=== PATIENT | female | born 1940 | race Caucasian/White ===

== ENCOUNTER 2016-10-03 14:58 | Outpatient (CLI) | payer MEDICARE, OTHER | END 2016-10-03 15:00 | LOC: NEPHRO 14:58 | PROVIDERS: ATTEND Internal Medicine Nephrology | DX: E11.22 Type 2 diabetes mellitus with diabetic chronic kidney disease (principal); N18.3 Chronic kidney disease, stage 3 (moderate) | CPT/HCPCS: G0463 ==

== ENCOUNTER 2016-10-12 10:10 | Emergency (ER) | payer MEDICARE, OTHER ==
[2016-10-12 12:16] LABS: APPEARANCE,URINE Slightly Cloudy (CLEAR); COLOR,URINE Yellow (YELLOW); OCCULT BLOOD,URINE 1+ (NEGATIVE); PH URINE 5.5 (5.0 - 8.0)
[2016-10-12 12:17] LABS: BASOPHILS % 0.2 (0.0-1.5); EOSINOPHILS % 0.4 % (0.0-6.8); MEAN CORPUSCULAR HEMOGLOBIN 29.9 pg (28.0-34.0); MEAN CORPUSCULAR VOLUME 90.3 fl (80.0-100.0); MONOCYTES % 3.2 % (0.0-11.0); NEUTROPHILS # 6.2 # k/uL (1.4-7.7)
[2016-10-12 12:30] LABS: AMORPHOUS SEDIMENT,UR FEW (NEGATIVE)
[2016-10-12] MEDS ORDERED: SULFAMETHOXAZOLE/TRIMETHOPRIM 1 EACH TABLET PO ONE (13:45)
[2016-10-12] MEDS ORDERED: MULTIVITAMIN 1 EACH TABLET PO SCH (14:00)
--- NOTE | 2016-10-12 14:14 | ED Physician Documentation ---
Fall - HISTORIAN Historian: patient - HPI Stated Complaint: Fall with Right Sided Rib Pain Chief Complaint: Fall Additional Information: hit right ribs Onset: just prior to arrival Where: home Context: tripped r: mild Associated Symptoms:: no loss of consciousness Location of Pain/Injury: head, chest Injury to Right Extremity: none Injury to Left Extremity: none Further Comments: no - ROS CONST: no problems NEURO: denies: dizziness, anxiety, depression MS/SKIN/LYMPH: denies: weakness, numbness, neck pain, back pain, ankle swelling , leg swelling, rash EYES/ENT: none CVS/RESP: none GI/: denies: problems urinating, nausea, vomiting - PAST HX Past History: diabetes Type 2, other (htn) Immunizations: referred to PCP Allergies/Adverse Reactions: Allergies Allergy/AdvReac Type Severity Reaction Status Date / Time No Known Allergies Allergy Unverified 10/12/16 10:21 Home Medications: Ambulatory Orders Medication Instructions Recorded Doxazosin Mesylate 4 mg PO DAILY 10/12/16 Hydralazine HCl [APRESOLINE] 100 mg PO BID 10/12/16 Insulin Glargine,Hum.rec.anlog 10/12/16 [Lantus] Levothyroxine Sodium [Synthroid] 75 mcg PO DAILY 10/12/16 Metoprolol Succinate [Toprol XL] 25 mg PO DAILY 10/12/16 Omeprazole [Omeprazole] 20 mg PO DAILY 10/12/16 Rosuvastatin Calcium [Crestor] 40 mg PO DAILY 10/12/16 - SOCIAL HX Smoking History: non-smoker Alcohol Use: none Drug Use: none - FAMILY HX Family History: no significant history - VITAL SIGNS Vital Signs: Vital Signs Temp Pulse Resp BP Pulse Ox 97 F L 64 18 166/44 98 10/12/16 10:10 10/12/16 10:10 10/12/16 10:10 10/12/16 10:10 10/12/16 10:10 - REVIEWED ASSESSMENTS Nursing Assessment Reviewed: Yes Vitals Reviewed: Yes Progress - Results/Orders Results/Orders: trop, bnp, ua, cmp, cbc, ekg, ct brain, ct c-soine, right ribs x-ray and cxr ordered ordered - Progress Progress: pt. stable entire time in er, given bactrim ds x 1 and mvi p.o. in er Critical Care Note - Critical Care Note Total Time (mins): 0 ED Results Lab/Radiology - Lab Results Lab Results: Lab Results 10/12/16 10/12/16 10/12/16 12:10 12:10 12:10 WBC RBC Hgb Hct MCV MCH MCHC RDW Plt Count Neut % (Auto) Lymph % (Auto) [place] % (Auto) Eos % (Auto) Baso % (Auto) Neut # Lymph # [place] # Eos # Baso # Reactive Lymphs % Reactive Lymphs # Sodium 140 mmol/L mmol/L (136-145) Potassium 3.9 mmol/L mmol/L (3.5-5.0) Chloride 103 mmol/L mmol/L (98-110) Carbon Dioxide 35 mmol/L H mmol/L (20-32) BUN 25 mg/dL mg/dL (10-26) Creatinine 1.7 mg/dL H mg/dL (0.4-1.5) Estimated Creat Clear 45 Est GFR ( Amer) 38 L (60 - ) Est GFR (Non-Af Amer) 31 L (60 - ) Glucose 147 mg/dL H mg/dL (70-99) Calcium 10.3 mg/dL mg/dL (8.5-10.5) Total Bilirubin 1.4 mg/dL H mg/dL (0.2-1.2) AST 20 U/L U/L (0-41) ALT 12 U/L U/L (0-45) Alkaline Phosphatase 46 U/L U/L (46-116) Troponin I < 0.03 ng/mL L ng/mL (0.03-0.06) NT-Pro-B Natriuret Pep 1885.0 pg/mL H pg/mL (15.0-450.0) Total Protein 7.7 g/dL g/dL (6.0-8.5) Albumin 4.1 g/dL g/dL (3.0-5.5) Urine Color Yellow (YELLOW) Urine Appearance Slightly cloudy (CLEAR) Urine pH 5.5 (5.0 - 8.0) Ur Specific [place] 1.025 (1.010-1.030) Urine Protein 2+ mg/dL H mg/dL (NEGATIVE) Urine Ketones Trace mg/dL mg/dL (NEGATIVE) Urine Occult Blood 1+ H (NEGATIVE) Urine Nitrite Negative (NEGATIVE) Urine Bilirubin Negative (NEGATIVE) Urine Urobilinogen 1.0 Eu Eu (0.2-1.0) Ur Leukocyte Esterase Negative (NEGATIVE) Urine RBC 2-5 H (0-2 HPF) Urine WBC 2-5 (0-5 HPF) Ur Squamous Epith Cells Few (NEG-FEW) Amorphous Sediment Few H (NEGATIVE) Urine Glucose Negative mg/dL mg/dL (NEGATIVE) 10/12/16 12:10 WBC 6.90 K/ul K/ul (4.00-12.00) RBC 3.90 M/ul M/ul (3.90-5.20) Hgb 11.6 g/dL L g/dL (12.0-16.0) Hct 35.2 % % (34.5-46.5) MCV 90.3 fl fl (80.0-100.0) MCH 29.9 pg pg (28.0-34.0) MCHC 33.1 g/dL g/dL (30.0-36.0) RDW 15.1 % H % (11.3-14.3) Plt Count 140 K/mm3 K/mm3 (130-400) Neut % (Auto) 89.7 % H % (39.0-79.0) Lymph % (Auto) 6.1 % L % (16.0-50.0) [place] % (Auto) 3.2 % % (0.0-11.0) Eos % (Auto) 0.4 % % (0.0-6.8) Baso % (Auto) 0.2 (0.0-1.5) Neut # 6.2 # k/uL # k/uL (1.4-7.7) Lymph # 0.4 # k/uL L # k/uL (0.6-4.0) [place] # 0.2 # k/uL # k/uL (0.0-0.9) Eos # 0.0 # k/uL # k/uL (0.0-0.6) Baso # 0.0 # k/uL # k/uL (0.0-0.5) Reactive Lymphs % 0.5 % % (0.0-5.0) Reactive Lymphs # 0.0 # k/uL # k/uL (0.0-0.8) Sodium Potassium Chloride Carbon Dioxide BUN Creatinine Estimated Creat Clear Est GFR ( Amer) Est GFR (Non-Af Amer) Glucose Calcium Total Bilirubin AST ALT Alkaline Phosphatase Troponin I NT-Pro-B Natriuret Pep Total Protein Albumin Urine Color Urine Appearance Urine pH Ur Specific [place] Urine Protein Urine Ketones Urine Occult Blood Urine Nitrite Urine Bilirubin Urine Urobilinogen Ur Leukocyte Esterase Urine RBC Urine WBC Ur Squamous Epith Cells Amorphous Sediment Urine Glucose - Radiology Radiology Impressions: ct head, ct c-spine, cxr right ribs x-ray neg - Orders Orders: ED Orders Category Date Time Status CT BRAIN W/O CONTRAST Stat Exams 10/12/[address] C-SPINE W/O CONTRAST Stat Exams 10/12/16 Ordered RIBS UNILATERAL W/ PA CHEST [RAD] Routine Exams 10/12/16 Taken BNP [NT-proBNP] Routine Lab 10/12/16 12:10 Completed CBC/PLATELET/DIFF Routine Lab 10/12/16 12:10 Completed CMP Routine Lab 10/12/16 12:10 Completed TROPONIN I (cTnI) Routine Lab 10/12/16 12:10 Completed URINALYSIS Routine Lab 10/12/16 12:10 Completed Multivitamin [Tab-A-Jia] Med 10/12/16 14:00 Ordered 1 each PO DAILY Sulfamethoxazole/Trimethoprim [Bactrim Ds] Med 10/12/16 13:45 Discontinued 1 each PO NOW ONE EKG WITH COMPARISON Routine Ther 10/12/16 Ordered Fall Physical Exam - Physical Exam General Appearance: no acute distress, alert Head: non-tender, no swelling, no obvious injury. No: raccoon eyes, Conley's sign Neck: non-tender, painless ROM, trachea midline Eye: VAL, EOMI, lids & conjunct. nml ENT: nml external inspection, no dental injury, no oral injury, airway nml Resp/CVS: chest non-tender, no ecchymosis, breath sounds nml, no resp. distress , heart sounds nml. 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 No: ecchymosis Back: normal inspection, no CVA tenderness, no vertebral tenderness Extremities: atraumatic, pelvis stable, hips non-tender, no pedal edema, nml ROM , nml color/temp Joint: joints nml, nml ROM, Nml gait/weight bearing. No: ligamentous instability - [place] Coma Score Eyes Open: Spontaneous Speech: Oriented Motor: Obeys Commands Discharge Clincal Impression: Urinary tract infection Qualifiers: Urinary tract infection type: acute cystitis Hematuria presence: with hematuria Qualified Code(s): N30.01 - Acute cystitis with hematuria Anemia Qualifiers: Anemia type: iron deficiency Iron deficiency anemia type: unspecified iron deficiency Qualified Code(s): D50.9 - Iron deficiency anemia, unspecified Referrals: Primary Doctor,No [Primary Care Provider] - 2 Days Home Medications: Ambulatory Orders Doxazosin Mesylate 4 mg PO DAILY 10/12/16 Hydralazine HCl [APRESOLINE] 100 mg PO BID 10/12/16 Insulin Glargine,Hum.rec.anlog [Lantus] 10/12/16 Levothyroxine Sodium [Synthroid] 75 mcg PO DAILY 10/12/16 Metoprolol Succinate [Toprol XL] 25 mg PO DAILY 10/12/16 Omeprazole [Omeprazole] 20 mg PO DAILY 10/12/16 Rosuvastatin Calcium [Crestor] 40 mg PO DAILY 10/12/16 Comments: Discharged home with script for Bactrim DS 1 p.o. bid x 7 days and FeSO4 325 mg 1 p.o. daily #30 Condition: Stable Disposition: 01 HOME, SELF-CARE Decision to Admit: NO Decision Time: 14:30
[2016-10-12 14:34] VITALS: BP 148/48
--- NOTE | 2016-10-12 16:49 | Diagnostic Imaging Report ---
[facility] [address] [facility] [address] [place] [address]. [address] Report Submission Date: Oct 12, 2016 12:43:57 PM CDT Patient Study Name: JANENE TINOCO Date: Oct 12, 2016 12:12:30 PM CDT Modality Type: CT\SR Gender: F Description: CT BRAIN W/O CONTRAST : 40 Institution: [facility] Physician ESTHER WHITT - Head CT without contrast CLINICAL HISTORY: Fall. Injury. TECHNIQUE: CT of the brain is performed in contiguous axial slices with sagittal and coronal reconstructions. FINDINGS: 4th ventricle lies in a normal midline position. The ventricles and sulci are prominent secondary to atrophy. Chronic ischemic changes are present in the periventricular regions. There is an old right parietal infarct with encephalomalacia. There is no hypodense or hyperdense mass or intracranial hemorrhage. Intracranial atherosclerosis is demonstrated. IMPRESSION: Atrophy and chronic small vessel ischemic changes. Intracranial atherosclerosis. Old right parietal infarct. Electronically signed on Oct 12, 2016 12:43:57 PM CDT by: Onel HAWLEY
--- NOTE | 2016-10-12 16:50 | Diagnostic Imaging Report ---
[facility] [address] [facility] [address] [place] [address]. [address] Report Submission Date: Oct 12, 2016 12:42:13 PM CDT Patient Study Name: JANENE TINOCO Date: Oct 12, 2016 12:14:59 PM CDT Modality Type: CT\SR Gender: F Description: CT C-SPINE W/O CONTRAS : 40 Institution: [facility] Physician ESTHER WHITT - CT of the cervical spine CLINICAL HISTORY: Fall with injury. Pain. TECHNIQUE: CT of the cervical spine is performed in contiguous axial slices with sagittal and coronal reconstructions. FINDINGS: The alignment of the vertebrae is anatomic. Disc spaces are narrowed at C4-5 and C5-6 with small anterior and posterior osteophytes consistent with degenerative disc disease. Prevertebral soft tissues are within normal limits. The C1-2 articulation is normal and the base of the odontoid is intact. There is no evident fracture. Carotid arterial calcification is identified. IMPRESSION: Spondylosis with degenerative disc disease. No fracture. Electronically signed on Oct 12, 2016 12:42:13 PM CDT by: Onel HAWLEY
--- NOTE | 2016-10-12 16:51 | Diagnostic Imaging Report ---
[facility] [address] [facility] [address] [place], [place]. [address] Report Submission Date: Oct 12, 2016 11:54:02 AM CDT Patient Study Name: JANENE TINOCO Date: Oct 12, 2016 10:44:27 AM CDT Modality Type: CR Gender: F Description: CHEST : 40 Institution: [facility] Physician ESTHER WHITT - EDINSON PA upright radiograph the chest and right ribs Clinical history chest pain Technique PA upright and standard rib radiographs FINDINGS: There is cardiomegaly. The aorta is tortuous and calcified. The peripheral lung chanel are clear. No pneumothorax is identified. No rib fracture is identified. Thoracic spine levoscoliosis is present. IMPRESSION: Cardiomegaly Tortuous thoracic aorta No acute rib pathology identified Consider CT of the chest for further evaluation Electronically signed on Oct 12, 2016 11:54:02 AM CDT by: Gulshan HAWLEY
== END 2016-10-12 14:30 | disposition home or self-care (01) ==
LOC: ED 10:10
DX: N30.01 Acute cystitis with hematuria (principal); D50.9 Iron deficiency anemia, unspecified; W19.XXXA Unspecified fall, initial encounter; Y93.9 Activity, unspecified; Y99.9 Unspecified external cause status
CPT/HCPCS: 70450; 71101; 72125; 80053; 81002; 83880; 84484; 85025; 99283; 99284; A9270

== ENCOUNTER 2018-10-16 16:26 | Inpatient (IN) | payer MEDICARE, OTHER ==
[2018-10-16 17:17] LABS: MEAN CORPUSCULAR HEMOGLOBIN 30.2 pg (28.0-34.0)
[2018-10-16 17:18] LABS: BASOPHILS % 0.5 % (0.0-1.5); EOSINOPHILS % 3.7 % (0.0-6.8); MONOCYTES % 6.3 % (0.0-11.0); NEUTROPHILS # 3.6 # k/uL (1.4-7.7)
[2018-10-16] MEDS ORDERED: 0.9 % SODIUM CHLORIDE 1,000 ML IV ONE (19:01)
--- NOTE | 2018-10-16 20:11 | ED Physician Documentation ---
General Adult - HISTORIAN Historian: patient, child - HPI Stated Complaint: Weakness Chief Complaint: General Adult Additional Information: Patient presents to ED via shelter with a 2 week history of weakness and general malaise. Patient's son reports her appetite has fallen off and she just doesn't seem herself lately. Denies fever, chills, nausea/vomiting, diarrhea or abdominal pain. Onset: days ago (14) Timing: still present Severity: moderate - ROS CONST: denies: fever EYES/ENT: none CVS/RESP: denies: chest pain, shortness of breath GI/: denies: abdominal pain, problems urinating, vomiting, nausea, diarrhea MS/SKIN/LYMPH: none NEURO/PSYCH: denies: headache - PAST HX Past History: none, other (single kidney) Other History: diabetes Type 2 Allergies/Adverse Reactions: Allergies Allergy/AdvReac Type Severity Reaction Status Date / Time acetaminophen [From Tylenol] Allergy Verified 10/16/18 17:10 Home Medications: Ambulatory Orders Medication Instructions Recorded Aspirin [Rosa] 1 tab PO DAILY 10/16/18 Cetirizine HCl [Zyrtec] 1 tab PO DAILY 10/16/18 Ibuprofen [Infants Ibuprofen] 1 drop OU TID 10/16/18 Insulin Aspart [Novolog Flexpen] 1 unit SQ PRN PRN 10/16/18 Insulin Detemir (Nf) [Levemir 15 units SQ AM 10/16/18 Flex-Pen (Nf)] Insulin Detemir [Levemir Flextouch] 30 units SQ HS 10/16/18 - SOCIAL HX Smoking History: non-smoker Alcohol Use: none Drug Use: none - FAMILY HX Family History: No - VITAL SIGNS Vital Signs: Vital Signs Temp Pulse Resp BP Pulse Ox 98.1 F 57 L 22 159/57 94 10/16/18 16:30 10/16/18 16:30 10/16/18 16:30 10/16/18 16:30 10/16/18 16:30 - REVIEWED ASSESSMENTS Nursing Assessment Reviewed: Yes Vitals Reviewed: Yes Progress - Results/Orders Results/Orders: Report Submission Date: Oct 16, 2018 6:57:56 PM CDT Patient Study Name: JANENE TINOCO Date: Oct 16, 2018 5:37:03 PM CDT Modality Type: DX Gender: F Description: CHEST 2VIEW : 40 Institution: [facility] Physician: SAMANTHA ADHIKARI Chest, AP and lateral HISTORY Weakness FINDINGS There is no infiltrate, effusion or pneumothorax. Heart size and pulmonary vascularity are normal. There is calcification in the thoracic aorta. IMPRESSION No active pulmonary disease. Electronically signed on Oct 16, 2018 6:57:56 PM CDT by: Pa Velez UA - Negative for infection - Progress Progress: 1829 Discussed need for possible pacemaker. Patient refused. Patient refused admission. Will contact DPOA. 2009 Discussed admission with Patient''s son, Patient is now agreeable to admission. [address] Daly, agrees with admission. ED Results Lab/Radiology - Lab Results Lab Results: Lab Results 10/16/18 10/16/18 10/16/18 16:38 16:38 16:38 WBC 5.60 K/ul K/ul (4.00-12.00) RBC 3.28 M/ul L M/ul (3.90-5.20) Hgb 9.9 g/dL L g/dL (11.5-16.0) Hct 28.8 % L % (34.5-46.5) MCV 88.0 fl fl (80.0-100.0) MCH 30.2 pg pg (28.0-34.0) MCHC 34.3 g/dL g/dL (30.0-36.0) RDW 15.9 % H % (11.3-14.3) Plt Count 178 K/mm3 K/mm3 (130-400) Neut % (Auto) 63.5 % % (39.0-79.0) Lymph % (Auto) 26.0 % % (16.0-50.0) [place] % (Auto) 6.3 % % (0.0-11.0) Eos % (Auto) 3.7 % % (0.0-6.8) Baso % (Auto) 0.5 % % (0.0-1.5) Neut # (Auto) 3.6 # k/uL # k/uL (1.4-7.7) Lymph # (Auto) 1.5 # k/uL # k/uL (0.6-4.0) [place] # (Auto) 0.4 # k/uL # k/uL (0.0-0.9) Eos # (Auto) 0.2 # k/uL # k/uL (0.0-0.6) Baso # (Auto) 0.0 # k/uL # k/uL (0.0-0.5) Sodium 137 mmol/L mmol/L (137-145) Potassium 3.5 mmol/L mmol/L (3.5-5.1) Chloride 97 mmol/L L mmol/L (98-107) Carbon Dioxide 32 mmol/L H mmol/L (22-30) BUN 38 mg/dL H mg/dL (7-17) Creatinine 2.60 mg/dL H mg/dL (0.52-1.04) Estimated Creat Clear 21 Est GFR ( Amer) 23 L (60 - ) Est GFR (Non-Af Amer) 19 L (60 - ) Glucose 121 mg/dL H mg/dL (74-106) Calcium 9.0 mg/dL mg/dL (8.4-10.2) Total Bilirubin 0.7 mg/dL mg/dL (0.2-1.3) AST 21 U/L U/L (15-46) ALT 12 U/L U/L (0-35) Alkaline Phosphatase 48 U/L U/L (38-126) Troponin I < 0.012 ng/mL L ng/mL (0.012-0.034) NT-Pro-B Natriuret Pep 1120.0 pg/mL H pg/mL (11.1-450.0) Total Protein 7.1 g/dL g/dL (6.3-8.2) Albumin 3.7 g/dL g/dL (3.5-5.0) - Orders Orders: ED Orders Category Date Time Status In & Out Cath [Intermittent urinary catheteri] 1T Care 10/16/18 19:[address] IV Lock 1T Care 10/16/18 16:54 Active CHEST 2VIEW [RAD] Stat Exams 10/16/[address] BRAIN W/O CONTRAST Stat Exams 10/16/18 Taken BNP [NTBNP] Stat Lab 10/16/18 16:38 Completed CBC/PLATELET/DIFF Routine Lab 10/16/18 16:38 Completed CMP Routine Lab 10/16/18 16:38 Completed TROPONIN I Stat Lab 10/16/18 16:38 Completed UA W/MICRO IF INDICATED Routine Lab 10/16/18 18:44 Ordered 0.9 % Sodium Chloride [Normal Saline] 1,000 ml Med 10/16/18 19:01 Discontinued IV Q1H EKG WITH COMPARISON Stat Ther 10/16/18 Ordered General Adult Physical Exam - PHYSICAL EXAM GENERAL APPEARANCE: no distress EENT: VAL NECK: normal inspection RESPIRATORY: no resp distress, chest non-tender, breath sounds normal CVS: bradycardia ABDOMEN: soft, normal bowel sounds. No: tenderness BACK: normal inspection, no CVA tenderness SKIN: warm/dry EXTREMITIES: non-tender, edema (+1 lower extremity edema bilaterall at ankles) NEURO: oriented X3, motor nml Discharge Clincal Impression: Bradycardia, Renal insufficiency Referrals: Raymundo Guillermo MD [Primary Care Provider] - 2 Days Condition: Stable Disposition: ADMITTED INPATIENT Decision to Admit: [id number] Date of Decison to Admit: 10/16/18 Decision Time: 20:22
--- NOTE | 2018-10-16 20:49 | Diagnostic Imaging Report ---
SAMANTHA ADHIKARI [facility] [address] [facility] [address] [place], [place]. [address] Report Submission Date: Oct 16, 2018 8:16:31 PM CDT Patient Study Name: JANENE TINOCO Date: Oct 16, 2018 7:34:37 PM CDT Modality Type: CT\SR Gender: F Description: CT BRAIN W/O CONTRAST : 40 Institution: [facility] Physician: SAMANTHA ADHIKARI CT head without contrast HISTORY Altered mental status TECHNIQUE Images through the brain were obtained without contrast. FINDINGS There is no mass, midline shift, hydrocephalus or hemorrhage. The ventricles and cortical sulci are enlarged, consistent with atrophy. Lucency in the periventricular white matter indicates microvascular ischemic change. Multiple chronic bilateral lacunar infarcts are present. No extra-axial fluid collection is identified. IMPRESSION Chronic and age-related changes. No acute intracranial process. Electronically signed on Oct 16, 2018 8:16:31 PM CDT by: Pa HAWLEY
--- NOTE | 2018-10-16 20:50 | Diagnostic Imaging Report ---
SAMANTHA ADHIKARI [facility] [address] [facility] [address] [place], [place]. [address] Report Submission Date: Oct 16, 2018 6:57:56 PM CDT Patient Study Name: JANENE TINOCO Date: Oct 16, 2018 5:37:03 PM CDT Modality Type: DX Gender: F Description: CHEST 2VIEW : 40 Institution: [facility] Physician: SAMANTHA ADHIKARI Chest, AP and lateral HISTORY Weakness FINDINGS There is no infiltrate, effusion or pneumothorax. Heart size and pulmonary vascularity are normal. There is calcification in the thoracic aorta. IMPRESSION No active pulmonary disease. Electronically signed on Oct 16, 2018 6:57:56 PM CDT by: Pa HAWLEY
[2018-10-16 21:27] LABS: APPEARANCE,URINE CLEAR (CLEAR); COLOR,URINE YELLOW (YELLOW); OCCULT BLOOD,URINE NEGATIVE (NEGATIVE); PH URINE 6.5 (5.0 - 8.0); UROBILINOGEN URINE 0.2 Eu (0.2-1.0)
[2018-10-16 21:57] VITALS: BMI 26.2
[2018-10-16] MEDS ORDERED: ONDANSETRON HCL/PF 4 MG/ 2ML VIAL IVP PRN (22:26)
[2018-10-16] MEDS ORDERED: 0.9 % SODIUM CHLORIDE 1,000 ML IV SCH (22:30)
[2018-10-17] MEDS: SODIUM CHLORIDE 0.9% 1 NASAL SPRAY BTL IEN SCH ×5 (00:11→20:40)
[2018-10-17 06:34] LABS: MEAN CORPUSCULAR HEMOGLOBIN 30.2 pg (28.0-34.0)
[2018-10-17 06:35] LABS: BASOPHILS % 0.3 % (0.0-1.5); NEUTROPHILS # 3.7 # k/uL (1.4-7.7)
--- NOTE | 2018-10-17 07:11 | History and Physical Report ---
History of Present Illnes - History of Present Illness Reason for Visit: Weakness History of Present Illness: Patient from [facility] presented to ER with a 2 week history of not feeling well. Describes weakness and poor appetite. REally didn't have any other complaints. In the ER she was found to have worsening renal function (only has one kidney) and bradycardia. She will be admitted to Acute for gentle IV hydration (BNP mild elevated) and telemetry.. - Past Medical History Cardiac: HTN, Hyperlipidemia Gastrointestinal: GERD Heme/Onc: Anemia NOS (Chronic kidney disease) Psych: Depression Renal/: Chronic renal failure (Baseline Cr 2 - only one kidney), Other (Renal artery stenosis) Endocrine: Diabetes, Hypothyroidism - Past Surgical History Past Surgical History: Other (colostomy) - Past Family History Mother Family History: Father Family History: - Past Social History Smoke: Quit (1985) Occupation: Alcohol: None Drugs: None Lives: [facility] - Health Maintenance Health Maintenance: Influenza Vaccine, Pneumococcal Vaccine (23 in 2015; 13 in 2014), DEXA Influenza Vaccine: Current for this Influenza Season Pneumonia Vaccine: Yes Resuscitation Status: Resusciation Status Resuscitation Status Do Not Resuscitate Review of Systems - Review of Systems Constitutional: Weakness, Malaise. negative: Fever Eyes: negative: pain ENT: negative: Ear Pain, Nose Discharge, Nose Congestion Respiratory: negative: Cough, Shortness of Breath Cardiovascular: negative: Chest Pain, Palpitations Gastrointestinal: negative: Nausea, Vomiting, Abdominal Pain Genitourinary: negative: Dysuria Musculoskeletal: negative: Neck Pain Skin: negative: Rash Neurological: Weakness. negative: Numbness, Incoordination, Confusion - Medications/Allergies Allergies/Adverse Reactions: Allergies Allergy/AdvReac Type Severity Reaction Status Date / Time acetaminophen [From Tylenol] Allergy Verified 10/16/18 17:10 Home Medications: Home Medications Aspirin [Rosa] 1 tab PO DAILY 10/16/18 Cetirizine HCl [Zyrtec] 1 tab PO DAILY 10/16/18 Ibuprofen [Infants Ibuprofen] 1 drop OU TID 10/16/18 Insulin Aspart [Novolog Flexpen] 1 unit SQ PRN PRN 10/16/18 Insulin Detemir (Nf) [Levemir Flex-Pen (Nf)] 15 units SQ AM 10/16/18 Insulin Detemir [Levemir Flextouch] 30 units SQ HS 10/16/18 Current Inpatient Medications: Current Inpatient Medications Heparin Sodium (Porcine) (Heparin) 5,000 unit SQ Q12 [facility] Sodium Chloride (Normal Saline) 1,000 mls @ 80 mls/hr IV Q10H [facility] Last Admin: 10/17/18 00:10 Dose: 80 mls/hr Ondansetron HCl (Zofran) 4 mg IVP Q6H PRN PRN Reason: Nausea / Vomiting Sodium Chloride (Saline Mist) 1 spray IEN QID [facility] Last Admin: 10/17/18 00:11 Dose: Not Given Exam - Exam Vital Signs: Vital Signs (72 hours) 10/16/18 10/16/18 10/16/18 16:30 20:48 21:10 Temperature 98.1 F 98.0 F 98.6 F Pulse Rate [ 57 L 56 L 58 L Right Pulse ox] Respiratory 22 20 20 Rate Blood Pressure 159/57 159/51 156/48 [Left Arm] O2 Sat by Pulse 94 94 98 Oximetry 10/16/18 10/17/18 10/17/18 21:54 01:10 04:37 Temperature 97.9 F 98.6 F Pulse Rate [ 55 L 58 L 58 L Right Pulse ox] Respiratory 20 20 20 Rate Blood Pressure 158/43 156/48 [Left Arm] O2 Sat by Pulse 95 98 Oximetry 10/17/18 10/17/18 05:00 05:58 Temperature 98.6 F 98.3 F Pulse Rate [ 58 L 63 Right Pulse ox] Respiratory 20 18 Rate Blood Pressure 156/48 140/53 [Left Arm] O2 Sat by Pulse 96 Oximetry General: Alert, Oriented to Person, Oriented to Place, Oriented to Time, Cooperative, No acute distress HEENT: Atraumatic, PERRLA, EOMI Neck: Normal Range of Motion Lungs: Clear to auscultation, Normal air movement, Speaks full Sentences Cardiovascular: Bradycardia Abdomen: Normal bowel sounds, Soft, No tenderness Integumentary: Normal Extremities: No edema Neurological: Generalized Weakness Psych/Mental Status: Mental status NL, Mood NL, Appropriate Affect, Intact Judgment - Laboratory Results Laboratory Results: Laboratory Results 10/16/18 10/16/18 10/16/18 16:38 16:38 16:38 WBC 5.60 RBC 3.28 L Hgb 9.9 L Hct 28.8 L MCV 88.0 MCH 30.2 MCHC 34.3 RDW 15.9 H Plt Count 178 Neut % (Auto) 63.5 Lymph % (Auto) 26.0 [place] % (Auto) 6.3 Eos % (Auto) 3.7 Baso % (Auto) 0.5 Neut # (Auto) 3.6 Lymph # (Auto) 1.5 [place] # (Auto) 0.4 Eos # (Auto) 0.2 Baso # (Auto) 0.0 Sodium 137 Potassium 3.5 Chloride 97 L Carbon Dioxide 32 H BUN 38 H Creatinine 2.60 H Estimated Creat Clear 21 Est GFR ( Amer) 23 L Est GFR (Non-Af Amer) 19 L Glucose 121 H Calcium 9.0 Total Bilirubin 0.7 AST 21 ALT 12 Alkaline Phosphatase 48 Troponin I < 0.012 L NT-Pro-B Natriuret Pep 1120.0 H Total Protein 7.1 Albumin 3.7 Urine Color Urine Appearance Urine pH Ur Specific [place] Urine Protein Urine Ketones Urine Occult Blood Urine Nitrite Urine Bilirubin Urine Urobilinogen Ur Leukocyte Esterase Urine Glucose 10/16/18 10/17/18 10/17/18 19:16 00:01 06:00 WBC RBC Hgb Hct MCV MCH MCHC RDW Plt Count Neut % (Auto) Lymph % (Auto) [place] % (Auto) Eos % (Auto) Baso % (Auto) Neut # (Auto) Lymph # (Auto) [place] # (Auto) Eos # (Auto) Baso # (Auto) Sodium Potassium Chloride Carbon Dioxide BUN Creatinine Estimated Creat Clear Est GFR ( Amer) Est GFR (Non-Af Amer) Glucose Calcium Total Bilirubin AST ALT Alkaline Phosphatase Troponin I 0.017 0.019 NT-Pro-B Natriuret Pep Total Protein Albumin Urine Color Yellow Urine Appearance Clear Urine pH 6.5 Ur Specific [place] 1.015 Urine Protein Negative Urine Ketones Negative Urine Occult Blood Negative Urine Nitrite Negative Urine Bilirubin Negative Urine Urobilinogen 0.2 Ur Leukocyte Esterase Trace H Urine Glucose Negative 10/17/18 10/17/18 06:00 06:00 WBC 4.80 RBC 2.80 L Hgb 8.5 L Hct 24.7 L MCV 88.0 MCH 30.2 MCHC 34.3 RDW 16.0 H Plt Count 167 Neut % (Auto) 77.1 Lymph % (Auto) 14.6 L [place] % (Auto) 5.0 Eos % (Auto) 3.0 Baso % (Auto) 0.3 Neut # (Auto) 3.7 Lymph # (Auto) 0.7 [place] # (Auto) 0.2 Eos # (Auto) 0.2 Baso # (Auto) 0.0 Sodium 139 Potassium 3.4 L Chloride 102 Carbon Dioxide 32 H BUN 34 H Creatinine 2.27 H Estimated Creat Clear 24 Est GFR ( Amer) 27 L Est GFR (Non-Af Amer) 22 L Glucose 140 H Calcium 8.2 L Total Bilirubin AST ALT Alkaline Phosphatase Troponin I NT-Pro-B Natriuret Pep Total Protein Albumin Urine Color Urine Appearance Urine pH Ur Specific [place] Urine Protein Urine Ketones Urine Occult Blood Urine Nitrite Urine Bilirubin Urine Urobilinogen Ur Leukocyte Esterase Urine Glucose Assessment/Plan - Assessment/Plan (1) Diabetes Status: Chronic Current Visit: No Qualifiers: Diabetes mellitus superintendent container terminal insulin use: without superintendent container terminal use Diabetes mellitus complication status: with kidney complications Diabetes mellitus complication detail: with nephropathy Plan: MOnitor accuchecks. Poor po intake so will watch. (2) Bradycardia Status: Acute Current Visit: Yes Plan: Admit for telemetry. Consider cardiac consult - may need pacemaker. (3) Renal insufficiency Status: Acute Current Visit: Yes Plan: According to [facility], last creatinine was 2.5 08/06/18. Will give IVF. Watch closely as BNP mildly elevated. (4) Anemia Status: Chronic Current Visit: Yes Qualifiers: Anemia type: due to chronic kidney disease Chronic kidney disease stage: s tage 4 (severe) Qualified Code(s): N18.4 - Chronic kidney disease, stage 4 (severe); D63.1 - Anemia in chronic kidney disease VTE Assessment - RISK FACTOR SCORE VTE RISK FACTOR SCORES: AGE OVER 60 YEARS, ANTICIPATED BED CONFINEMENT OR IMMOBILIZATION > 24 HOURS
[2018-10-17] MEDS ORDERED: LEVOTHYROXINE SODIUM 75 MCG PO SCH (09:00)
[2018-10-17] MEDS ORDERED: Non-Formulary 1 EACH (Omeprazole [Omeprazole] 20 MG) PO SCH (09:00)
[2018-10-17] MEDS: HEPARIN SODIUM 5000 UNIT/1 ML SQ SCH ×2 (09:40→20:41)
[2018-10-17] MEDS: DOCUSATE SODIUM 100 MG CAPSULE PO SCH (09:40)
[2018-10-17] MEDS: INSULIN LISPRO 100 UNIT/ML 3ML VIAL SQ SCH ×3 (12:02→20:50)
[2018-10-17] MEDS ORDERED: IBUPROFEN 200MG/10ML ORAL SUSPENSION CUP PO PRN (17:35)
[2018-10-17] MEDS ORDERED: IBUPROFEN 400 MG TABLET PO ONE (17:49)
[2018-10-17] MEDS ORDERED: KETOROLAC TROMETHAMINE 10 MG TABLET PO ONE (20:15)
[2018-10-18] MEDS: INSULIN LISPRO 100 UNIT/ML 3ML VIAL SQ SCH ×4 (06:34→21:24)
[2018-10-18] MEDS: PANTOPRAZOLE SODIUM 40 MG TABLET.DR PO SCH ×2 (06:35→06:37)
[2018-10-18] MEDS: LEVOTHYROXINE SODIUM 25 MCG TABLET PO SCH ×2 (06:36→06:38)
[2018-10-18 07:07] LABS: BASOPHILS % 0.3 % (0.0-1.5); EOSINOPHILS % 2.4 % (0.0-6.8); MEAN CORPUSCULAR HEMOGLOBIN 29.8 pg (28.0-34.0); MONOCYTES % 4.6 % (0.0-11.0); NEUTROPHILS # 5.5 # k/uL (1.4-7.7)
--- NOTE | 2018-10-18 07:55 | Inpatient Progress Note ---
Subjective - Required Recertification Statement I anticipate X number of days because-include discharge plan: 2 days - Review of Systems Subjective: Patient states she does seem to be feeling better today. Patient denies any chest pain chest pressure TIA or CVA symptoms. Patient does appear to be mildly lethargic. Patient denies any pain at this time. Stated her breathing seem to be at baseline. Patient continues to have some bradycardia with a heart rate getting down into the 40s at times. Patient blood pressure has been stable. Blood sugars have remain stable. Objective - Exam Vitals and I&O: Vital Signs Temp 97.6 F 10/18/18 05:44 Pulse 50 L 10/18/18 05:44 Resp 16 10/18/18 05:44 BP 163/55 10/18/18 05:44 Pulse Ox 96 10/18/18 05:44 Intake & Output 10/17/18 10/17/18 10/18/18 11:59 23:59 11:59 Intake Total 760 0 100 Balance 760 0 100 Weight 64.82 kg 63.79 kg Intake: IV 420 0 0 Right Forearm 420 0 0 Oral 340 100 Other: Voiding Method Toilet Toilet Toilet # Voids 2 3 2 # Bowel Movements 0 General: Alert, Oriented to Person, Oriented to Place, Oriented to Time, Cooperative Lungs: Clear to auscultation, Normal air movement, Speaks full Sentences. No: Wheezes, Rales, Rhonchi Cardiovascular: Regular rate, Normal S1, Normal S2 Abdomen: Normal bowel sounds, Soft, No tenderness, No hepatospenomegaly, No masses Extremities: No clubbing, No edema Skin: Normal, [place], Warm, Dry. No: Decreased Turgor Neurological: Normal speech, Strength Equal Bilat Psych/Mental Status: Mental status NL, Mood NL, Appropriate Affect, Intact Judgment - Results Results: Laboratory Results WBC 7.10 K/ul (4.00-12.00) 10/18/18 06:00 RBC 3.27 M/ul (3.90-5.20) L 10/18/18 06:00 Hgb 9.7 g/dL (11.5-16.0) L 10/18/18 06:00 Hct 28.9 % (34.5-46.5) L 10/18/18 06:00 MCV 88.0 fl (80.0-100.0) 10/18/18 06:00 MCH 29.8 pg (28.0-34.0) 10/18/18 06:00 MCHC 33.8 g/dL (30.0-36.0) 10/18/18 06:00 RDW 15.9 % (11.3-14.3) H 10/18/18 06:00 Plt Count 157 K/mm3 (130-400) 10/18/18 06:00 Neut % (Auto) 78.0 % (39.0-79.0) 10/18/18 06:00 Lymph % (Auto) 14.7 % (16.0-50.0) L 10/18/18 06:00 [place] % (Auto) 4.6 % (0.0-11.0) 10/18/18 06:00 Eos % (Auto) 2.4 % (0.0-6.8) 10/18/18 06:00 Baso % (Auto) 0.3 % (0.0-1.5) 10/18/18 06:00 Neut # (Auto) 5.5 # k/uL (1.4-7.7) 10/18/18 06:00 Lymph # (Auto) 1.0 # k/uL (0.6-4.0) 10/18/18 06:00 [place] # (Auto) 0.3 # k/uL (0.0-0.9) 10/18/18 06:00 Eos # (Auto) 0.2 # k/uL (0.0-0.6) 10/18/18 06:00 Baso # (Auto) 0.0 # k/uL (0.0-0.5) 10/18/18 06:00 Sodium 137 mmol/L (137-145) 10/18/18 06:00 Potassium 3.6 mmol/L (3.5-5.1) 10/18/18 06:00 Chloride 101 mmol/L (98-107) 10/18/18 06:00 Carbon Dioxide 29 mmol/L (22-30) 10/18/18 06:00 BUN 31 mg/dL (7-17) H 10/18/18 06:00 Creatinine 2.15 mg/dL (0.52-1.04) H 10/18/18 06:00 Estimated Creat Clear 25 10/18/18 06:00 Est GFR ( Amer) 29 (60-) L 10/18/18 06:00 Est GFR (Non-Af Amer) 24 (60-) L 10/18/18 06:00 Glucose 133 mg/dL (74-106) H 10/18/18 06:00 Calcium 8.8 mg/dL (8.4-10.2) 10/18/18 06:00 Total Bilirubin 0.7 mg/dL (0.2-1.3) 10/18/18 06:00 AST 26 U/L (15-46) 10/18/18 06:00 ALT 13 U/L (0-35) 10/18/18 06:00 Alkaline Phosphatase 47 U/L (38-126) 10/18/18 06:00 Troponin I 0.020 ng/mL (0.012-0.034) 10/17/18 16:02 NT-Pro-B Natriuret Pep 1120.0 pg/mL (11.1-450.0) H 10/16/18 16:38 Total Protein 7.0 g/dL (6.3-8.2) 10/18/18 06:00 Albumin 3.6 g/dL (3.5-5.0) 10/18/18 06:00 Urine Color Yellow (YELLOW) 10/16/18 19:16 Urine Appearance Clear (CLEAR) 10/16/18 19:16 Urine pH 6.5 (5.0 - 8.0) 10/16/18 19:16 Ur Specific [place] 1.015 (1.010-1.030) 10/16/18 19:16 Urine Protein Negative mg/dL (NEGATIVE) 10/16/18 19:16 Urine Ketones Negative mg/dL (NEGATIVE) 10/16/18 19:16 Urine Occult Blood Negative (NEGATIVE) 10/16/18 19:16 Urine Nitrite Negative (NEGATIVE) 10/16/18 19:16 Urine Bilirubin Negative (NEGATIVE) 10/16/18 19:16 Urine Urobilinogen 0.2 Eu (0.2-1.0) 10/16/18 19:16 Ur Leukocyte Esterase Trace (NEGATIVE) H 10/16/18 19:16 Urine Glucose Negative mg/dL (NEGATIVE) 10/16/18 19:16 Assessment/Plan - Assessment/Plan (1) Bradycardia Status: Acute Current Visit: Yes Assessment: Seem to be doing better this morning. Blood pressure has been stable and pulse is been in the 50-60 range. (2) Renal insufficiency Status: Acute Current Visit: Yes Assessment: Seem to be slowly improving. Will discontinue fluids today. 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
--- NOTE | 2018-10-18 07:55 | Inpatient Progress Note ---
Subjective - Required Recertification Statement I anticipate X number of days because-include discharge plan: day - Review of Systems Events since last encounter: Patient seemed to be doing well at this time. She did not relate having any specific complaints. Patient stated her breathing appeared to be stable. Patient denies any chest pain or chest pressure. Patient did requires some assistance with ambulation to the bathroom. Patient pulse did drop down into the mid 30s last night. General: Denies: Chills Pulmonary: Denies: Dyspnea, Cough Cardiovascular: Denies: Chest Pain, Palpitations Gastrointestinal: Denies: Nausea, Vomiting, Abdominal Pain Objective - Exam Vitals and I&O: Vital Signs Temp 97.6 F 10/18/18 05:44 Pulse 50 L 10/18/18 05:44 Resp 16 10/18/18 05:44 BP 163/55 10/18/18 05:44 Pulse Ox 96 10/18/18 05:44 Intake & Output 10/17/18 10/17/18 10/18/18 11:59 23:59 11:59 Intake Total 760 0 100 Balance 760 0 100 Weight 64.82 kg 63.79 kg Intake: IV 420 0 0 Right Forearm 420 0 0 Oral 340 100 Other: Voiding Method Toilet Toilet Toilet # Voids 2 3 2 # Bowel Movements 0 General: Alert (Patient is alert that she is a little bit more lethargic than her baseline.), Oriented to Person, Oriented to Place, Oriented to Time, Cooperative Neck: Supple, No JVD, No thyromegaly Lungs: Clear to auscultation, Normal air movement, Speaks full Sentences. No: Wheezes, Rales, Rhonchi Cardiovascular: Regular rate, Normal S1, Normal S2, Murmur (2/6) Abdomen: Normal bowel sounds, Soft, No tenderness Extremities: No cyanosis, No edema Skin: Normal, [place], Warm, Dry Neurological: Strength Equal Bilat, Sensation intact, Cranial nerves 3-12 NL, Reflexes 2+ Psych/Mental Status: Mental status NL, Mood NL, Appropriate Affect, Intact Judgment - Results Results: Laboratory Results WBC 7.10 K/ul (4.00-12.00) 10/18/18 06:00 RBC 3.27 M/ul (3.90-5.20) L 10/18/18 06:00 Hgb 9.7 g/dL (11.5-16.0) L 10/18/18 06:00 Hct 28.9 % (34.5-46.5) L 10/18/18 06:00 MCV 88.0 fl (80.0-100.0) 10/18/18 06:00 MCH 29.8 pg (28.0-34.0) 10/18/18 06:00 MCHC 33.8 g/dL (30.0-36.0) 10/18/18 06:00 RDW 15.9 % (11.3-14.3) H 10/18/18 06:00 Plt Count 157 K/mm3 (130-400) 10/18/18 06:00 Neut % (Auto) 78.0 % (39.0-79.0) 10/18/18 06:00 Lymph % (Auto) 14.7 % (16.0-50.0) L 10/18/18 06:00 [place] % (Auto) 4.6 % (0.0-11.0) 10/18/18 06:00 Eos % (Auto) 2.4 % (0.0-6.8) 10/18/18 06:00 Baso % (Auto) 0.3 % (0.0-1.5) 10/18/18 06:00 Neut # (Auto) 5.5 # k/uL (1.4-7.7) 10/18/18 06:00 Lymph # (Auto) 1.0 # k/uL (0.6-4.0) 10/18/18 06:00 [place] # (Auto) 0.3 # k/uL (0.0-0.9) 10/18/18 06:00 Eos # (Auto) 0.2 # k/uL (0.0-0.6) 10/18/18 06:00 Baso # (Auto) 0.0 # k/uL (0.0-0.5) 10/18/18 06:00 Sodium 137 mmol/L (137-145) 10/18/18 06:00 Potassium 3.6 mmol/L (3.5-5.1) 10/18/18 06:00 Chloride 101 mmol/L (98-107) 10/18/18 06:00 Carbon Dioxide 29 mmol/L (22-30) 10/18/18 06:00 BUN 31 mg/dL (7-17) H 10/18/18 06:00 Creatinine 2.15 mg/dL (0.52-1.04) H 10/18/18 06:00 Estimated Creat Clear 25 10/18/18 06:00 Est GFR ( Amer) 29 (60-) L 10/18/18 06:00 Est GFR (Non-Af Amer) 24 (60-) L 10/18/18 06:00 Glucose 133 mg/dL (74-106) H 10/18/18 06:00 Calcium 8.8 mg/dL (8.4-10.2) 10/18/18 06:00 Total Bilirubin 0.7 mg/dL (0.2-1.3) 10/18/18 06:00 AST 26 U/L (15-46) 10/18/18 06:00 ALT 13 U/L (0-35) 10/18/18 06:00 Alkaline Phosphatase 47 U/L (38-126) 10/18/18 06:00 Troponin I 0.020 ng/mL (0.012-0.034) 10/17/18 16:02 NT-Pro-B Natriuret Pep 1120.0 pg/mL (11.1-450.0) H 10/16/18 16:38 Total Protein 7.0 g/dL (6.3-8.2) 10/18/18 06:00 Albumin 3.6 g/dL (3.5-5.0) 10/18/18 06:00 Urine Color Yellow (YELLOW) 10/16/18 19:16 Urine Appearance Clear (CLEAR) 10/16/18 19:16 Urine pH 6.5 (5.0 - 8.0) 10/16/18 19:16 Ur Specific [place] 1.015 (1.010-1.030) 10/16/18 19:16 Urine Protein Negative mg/dL (NEGATIVE) 10/16/18 19:16 Urine Ketones Negative mg/dL (NEGATIVE) 10/16/18 19:16 Urine Occult Blood Negative (NEGATIVE) 10/16/18 19:16 Urine Nitrite Negative (NEGATIVE) 10/16/18 19:16 Urine Bilirubin Negative (NEGATIVE) 10/16/18 19:16 Urine Urobilinogen 0.2 Eu (0.2-1.0) 10/16/18 19:16 Ur Leukocyte Esterase Trace (NEGATIVE) H 10/16/18 19:16 Urine Glucose Negative mg/dL (NEGATIVE) 10/16/18 19:16 Assessment/Plan - Assessment/Plan (1) Bradycardia Status: Acute Current Visit: Yes Assessment: Patient is still having some bradycardia especially it nighttime. Appeared to be asymptomatic at this point time. Patient does seem to be able to maintain adequate blood pressure with the bradycardia. Patient denies any chest pain or chest pressure. Will continue to monitor the patient. May need to get a hold to monitor palm discharge. Plan: Patient does seem week. Will try to ambulate the patient in the hallway today as he has she done. I suspect that the patient may need some skilled therapy upon returning to the [facility]. (2) Renal insufficiency Status: Acute Current Visit: Yes Assessment: Creatinine has improved to 2.15 and BUN to 31. 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
[2018-10-18] MEDS: SODIUM CHLORIDE 0.9% 1 NASAL SPRAY BTL IEN SCH ×4 (08:50→21:27)
[2018-10-18] MEDS: DOCUSATE SODIUM 100 MG CAPSULE PO SCH (08:50)
[2018-10-18] MEDS: HEPARIN SODIUM 5000 UNIT/1 ML SQ SCH ×2 (08:50→20:50)
--- NOTE | 2018-10-18 23:07 | Discharge Summary ---
Discharge Summary - Discharge Sumary Admission Date: 10/16/18 (Acute) Discharge Date: 10/19/18 (Senior Living - [facility]) History of Present Illness: Patient from [facility] presented to ER with a 2 week history of not feeling well. Describes weakness and poor appetite. REally didn't have any other complaints. In the ER she was found to have worsening renal function (only has one kidney) and bradycardia. She will be admitted to Acute for gentle IV hydration (BNP mild elevated) and telemetry.. Condition at Discharge: Stable Home Medications: Ambulatory Orders Medication Instructions Recorded Aspirin [Rosa] 1 tab PO DAILY 10/16/18 Cetirizine HCl [Zyrtec] 1 tab PO DAILY 10/16/18 Insulin Aspart [Novolog Flexpen] 1 unit SQ PRN PRN 10/16/18 Insulin Detemir (Nf) [Levemir 15 units SQ AM 10/16/18 Flex-Pen (Nf)] Insulin Detemir [Levemir Flextouch] 30 units SQ HS 10/16/18 Furosemide 20 mg PO DAILY #180 tablet 10/18/18 Consultations this Visit: None Procedures this Visit: None Allergies/Adverse Reactions: Allergies Allergy/AdvReac Type Severity Reaction Status Date / Time acetaminophen [From Tylenol] Allergy Verified 10/16/18 17:10 Patient Problems: Current Active Problems Problem Status Onset Bradycardia Acute Hypothyroidism Acute Renal insufficiency Acute Anemia Chronic Discharge Summary: 78-year-old white female who is admitted to acute care from a group home. Patient had not been feeling well for several days prior to her admission. In the emergency room patient was noted to be bradycardia down into the 40 that time. There was some question whether bradycardia may be contributing to her symptoms. Patient did not complain of any chest pain or chest pressure. Patient was admitted placed on telemetry. Serial EKG showed a normal sinus rhythm with intermittent bradycardia. Bradycardia did get down into the 30s but patient was able to maintain blood pressure adequately. Patient is asymptomatic with the bradycardia. Serial troponin for done and remain within normal range. Serial EKG did not show any acute ischemic episodes. Patient diabetes mellitus was manage with a sliding scale insulin ordered. Patient did not have any hyper or hypoglycemic episodes. Patient was continued on her home medication for her hypothyroidism. Patient did appear to be mildly lethargic on admission and did remain mildly lethargic during her hospitalization. A CT scan of the head was done and did showed age-related changes no acute pathology with noted. Patient was noted to have elevated BUN and creatinine about baseline. Patient was hydrated slowly with some improvement in her creatinine BUN. At the time of dismissal was felt that the patient was stable that she could be discharge back to the group home with further workup being done on an outpatient basis. - Final Diagnosis (1) Bradycardia Problems: sinus bradycardia on EKG. Patient may have a sick sinus syndrome. (2) Hypothyroidism Problems: Stable on home medications. (3) Renal insufficiency Problems: Since improved with mild rehydration. (4) Anemia Problems: Stable will continue iron supplement. (5) Diabetes Problems: Stable on insulin therapy. Will discontinue Januvia.
[2018-10-19] MEDS: INSULIN LISPRO 100 UNIT/ML 3ML VIAL SQ SCH (08:18)
[2018-10-19] MEDS: HEPARIN SODIUM 5000 UNIT/1 ML SQ SCH (08:19)
[2018-10-19] MEDS: DOCUSATE SODIUM 100 MG CAPSULE PO SCH (08:19)
[2018-10-19 08:52] VITALS: BP 150/61
== END 2018-10-19 10:45 | DRG 700 ==
LOC: ED 16:26 → SOUTH 21:05
PROVIDERS: ADMIT Family Medicine; ATTEND Family Medicine
DX: E11.22 Type 2 diabetes mellitus with diabetic chronic kidney disease (principal); D63.1 Anemia in chronic kidney disease; I12.9 Hypertensive chronic kidney disease with stage 1 through stage 4 chronic kidney disease, or unspecified chronic kidney disease; N18.4 Chronic kidney disease, stage 4 (severe); E03.9 Hypothyroidism, unspecified; R53.1 Weakness; Z90.5 Acquired absence of kidney
CPT/HCPCS: 36415; 70450; 71046; 80048; 80053; 81002; 83880; 84484; 85025; 93005; 96365; 96366; 99284; 99285; J1644; J7030; 99222; 99231; 99232; 99238; S1016

== ENCOUNTER 2019-01-30 07:25 | Outpatient (CLI) | payer MEDICARE, OTHER ==
[2019-01-30 07:42] LABS: A1C 5.7 % (<5.7)
[2019-01-30 08:00] LABS: eGFR (Non-African) 18
== END 2019-01-30 07:27 ==
LOC: LAB 07:25
PROVIDERS: ATTEND Family Medicine
DX: I10 Essential (primary) hypertension (principal); D64.9 Anemia, unspecified; E11.9 Type 2 diabetes mellitus without complications
CPT/HCPCS: 80053; 83036; 84443

== ENCOUNTER 2019-02-25 15:10 | Outpatient (CLI) | payer MEDICARE, OTHER ==
[2019-02-25 15:15] LABS: BASOPHILS % 0.3 % (0.0-1.5); NEUTROPHILS # 9.3 # k/uL (1.4-7.7)
[2019-02-25 15:16] LABS: eGFR (Non-African) 16
== END 2019-02-25 15:12 ==
LOC: LAB 15:10
PROVIDERS: ATTEND Family Medicine
DX: E11.9 Type 2 diabetes mellitus without complications (principal); I10 Essential (primary) hypertension
CPT/HCPCS: 80053; 85025

== ENCOUNTER 2019-02-26 09:00 | Outpatient (CLI) | payer MEDICARE, OTHER ==
--- NOTE | 2019-02-26 13:57 | Diagnostic Imaging Report ---
WINDY ROOT [facility] [address] [facility] [address] [place] [address]. [id number] Report Submission Date: Feb 26, 2019 1:52:22 PM CDT Patient Study Name: JANENE TINOCO Date: Feb 26, 2019 12:55:23 PM CDT Modality Type: DX Gender: F Description: ABD SERIES PA CHEST : 40 Institution: [facility] Physician: WINDY ROOT Examination: Obstruction series History: CONSTIPATION AND ABD PAIN Findings: 7 views obtained of the chest and abdomen. No abnormal dilation of the large or small bowel. Significant stool throughout the large bowel. No suspicious calcification projecting over the renal fossa or the lower pelvic region. Osseous degenerative changes. Prominent cardiac silhouette. Tortuous aorta. No focal consolidation or blunting of the costophrenic margins. Impression: Significant large bowel stool. No obstruction. No focal consolidation or effusion. No suspicious calcifications by plain film sensitivity. Electronically signed on Feb 26, 2019 1:52:22 PM CDT by: Bossman HAWLEY
== END 2019-02-26 09:03 ==
LOC: LAB 09:00
PROVIDERS: ATTEND Family Medicine
DX: N18.9 Chronic kidney disease, unspecified (principal); D64.9 Anemia, unspecified
CPT/HCPCS: 36415; 74022; 83880

== ENCOUNTER 2019-02-27 16:10 | Observation (INO) | payer MEDICARE, OTHER ==
[2019-02-27 16:44] LABS: BASOPHILS % 0.2 % (0.0-1.5); NEUTROPHILS # 5.8 # k/uL (1.4-7.7)
[2019-02-27 17:07] LABS: eGFR (Non-African) 17
[2019-02-27 20:09] VITALS: BMI 31.1
[2019-02-27] MEDS ORDERED: MAGNESIUM CITRATE 296 ML BOTTLE PO ONE (20:18)
[2019-02-27] MEDS ORDERED: HYDRALAZINE HCL 50 MG PO SCH (21:00)
[2019-02-27] MEDS ORDERED: 0.9 % SODIUM CHLORIDE 500 ML IV ONE (21:29)
--- NOTE | 2019-02-27 23:44 | Diagnostic Imaging Report ---
WINDY ROOT [facility] [address] [facility] [address] [place], [place]. [address] Report Submission Date: Feb 27, 2019 10:40:53 PM CDT Patient Study Name: JANENE TINOCO Date: Feb 27, 2019 10:08:12 PM CDT Modality Type: CT Gender: F Description: CT BRAIN W/O CONTRAST : 40 Institution: [facility] Physician: WINDY ROOT Computed tomography head without contrast History: Mental status changes Findings: Transverse brain sections are obtained without contrast. The prior exam has not been provided for comparison. Moderate brain atrophy is observed. 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 An old small right lateral parietal cortical infarct is also observed. Extensive bilateral cerebral white matter hypoattenuation is present. There is no intracranial hemorrhage, mass effect, fluid collection, or skull lesion. Impression: 1. Extensive chronic small vessel ischemic changes. 2. Moderate brain atrophy. Electronically signed on Feb 27, 2019 10:40:53 PM CDT by: Mirza HAWLEY
[2019-02-28] MEDS: 0.9 % SODIUM CHLORIDE 1,000 ML IV SCH ×3 (00:10→23:03)
[2019-02-28] MEDS: LEVOTHYROXINE SODIUM 88 MCG TABLET PO SCH (06:39)
[2019-02-28 07:19] LABS: BASOPHILS % 0.3 % (0.0-1.5)
[2019-02-28] MEDS: INSULIN REGULAR, HUMAN 100 UNIT/ML 10ML VIAL SQ SCH ×3 (07:41→16:46)
[2019-02-28] MEDS ORDERED: SITagliptin PHOSPHATE 50 MG TABLET PO ONE (08:33)
[2019-02-28] MEDS: hydrALAZINE HCL 25 MG TABLET PO SCH ×2 (08:35→20:26)
[2019-02-28] MEDS: DOCUSATE SODIUM 100 MG CAPSULE PO SCH (08:36)
[2019-02-28] MEDS: ENOXAPARIN SODIUM 30 MG/0.3 ML DISP.SYRIN SQ SCH (08:41)
[2019-02-28] MEDS ORDERED: LEVOTHYROXINE SODIUM 75 MCG PO SCH (09:00)
[2019-02-28] MEDS ORDERED: SITAGLIPTIN PHOSPHATE 25 MG PO SCH (09:00)
[2019-02-28] MEDS: ASPIRIN 81 MG CHEW TAB PO SCH (09:43)
--- NOTE | 2019-02-28 11:47 | Diagnostic Imaging Report ---
WINDY ROOT [facility] [address] [facility] [address] [address] Report Submission Date: Feb 28, 2019 7:28:38 AM CDT Patient Study Name: JANENE TINOCO Date: Feb 28, 2019 5:54:21 AM CDT Modality Type: DX Gender: F Description: ABDOMEN 1VIEW : 40 Institution: [facility] Physician: WINDY ROOT KUB History: Constipation Two supine views of the abdomen demonstrate a very large amount of stool distributed throughout the entire colon consistent with severe constipation. No dilated small bowel loops are noted. Impression: Very large amount of stool distributed throughout the entire colon consistent with severe constipation. Electronically signed on Feb 28, 2019 7:28:38 AM CDT by: Gaviota HAWLEY
[2019-03-01] MEDS: LEVOTHYROXINE SODIUM 88 MCG TABLET PO SCH (05:46)
[2019-03-01] MEDS: INSULIN REGULAR, HUMAN 100 UNIT/ML 10ML VIAL SQ SCH ×2 (07:32→12:07)
[2019-03-01] MEDS ORDERED: SITagliptin PHOSPHATE 50 MG TABLET PO SCH (09:00)
--- NOTE | 2019-03-01 09:13 | Inpatient Progress Note ---
Subjective - Required Recertification Statement I anticipate X number of days because-include discharge plan: 1 day - Review of Systems Subjective: Patient seem to be more awake and alert today than what she was yesterday. Patient is responding to verbal stimuli better. Patient however stated she does not feel well. She does not have any specific complaints however. Patient denies any cough, shortness of breath, chest pain, nausea vomiting or diarrhea. Patient will have a small result from the titrated magnesium that was given yesterday. General: Denies: Chills, Night Sweats HEENT: Denies: Head Aches Pulmonary: Denies: Dyspnea, Cough Cardiovascular: Denies: Chest Pain, Palpitations, Paroxysmal Noc. Dyspnea Gastrointestinal: Constipation. Denies: Nausea, Vomiting, Abdominal Pain, Diarrhea Genitourinary: Denies: Dysuria Objective - Exam Vitals and I&O: Vital Signs Temp 98.6 F 03/01/19 08:33 Pulse 50 L 03/01/19 08:33 Resp 18 03/01/19 08:33 BP 154/60 03/01/19 08:33 Pulse Ox 94 03/01/19 08:33 Intake & Output 02/28/19 02/28/19 03/01/19 11:59 23:59 11:59 Intake Total 620 510 540 Output Total 50 0 140 Balance 570 510 400 Intake: IV 520 Left Forearm 520 Oral 100 510 540 Output: Urine 50 0 140 Other: Voiding Method Bedside Commode Bedside Commode Bedside Commode # Voids 1 2 # Bowel Movements 1 1 1 General: Alert, Oriented to Person, Oriented to Place, Oriented to Time, Cooperative HEENT: Atraumatic, PERRLA, EOMI, Mouth Mucous membr. moist/[place], Nose Mucous membr. moist/[place] Neck: Supple, No JVD, No thyromegaly Lungs: Clear to auscultation, Normal air movement, Speaks full Sentences Cardiovascular: Regular rate, Normal S1, Normal S2, No murmurs Abdomen: Normal bowel sounds, Soft, No tenderness, No hepatospenomegaly, No masses Extremities: No clubbing, No cyanosis, No edema, Normal pulses, No tenderness/swelling Skin: Normal, [place], Warm, Dry Neurological: Normal gait, Normal speech, Strength Equal Bilat, Normal tone Psych/Mental Status: Mental status NL, Mood NL - Results Results: Laboratory Results WBC 5.90 K/ul (4.00-12.00) 02/28/19 06:00 RBC 2.90 M/ul (3.90-5.20) L 02/28/19 06:00 Hgb 8.8 g/dL (11.5-16.0) L 02/28/19 06:00 Hct 25.8 % (34.5-46.5) L 02/28/19 06:00 MCV 89.0 fl (80.0-100.0) 02/28/19 06:00 MCH 30.3 pg (28.0-34.0) 02/28/19 06:00 MCHC 34.1 g/dL (30.0-36.0) 02/28/19 06:00 RDW 16.3 % (11.3-14.3) H 02/28/19 06:00 Plt Count 214 K/mm3 (130-400) 02/28/19 06:00 Neut % (Auto) 68.8 % (39.0-79.0) 02/28/19 06:00 Lymph % (Auto) 18.8 % (16.0-50.0) 02/28/19 06:00 [place] % (Auto) 6.6 % (0.0-11.0) 02/28/19 06:00 Eos % (Auto) 5.5 % (0.0-6.8) 02/28/19 06:00 Baso % (Auto) 0.3 % (0.0-1.5) 02/28/19 06:00 Neut # (Auto) 4.0 # k/uL (1.4-7.7) 02/28/19 06:00 Lymph # (Auto) 1.1 # k/uL (0.6-4.0) 02/28/19 06:00 [place] # (Auto) 0.4 # k/uL (0.0-0.9) 02/28/19 06:00 Eos # (Auto) 0.3 # k/uL (0.0-0.6) 02/28/19 06:00 Baso # (Auto) 0.0 # k/uL (0.0-0.5) 02/28/19 06:00 Sodium 140 mmol/L (137-145) 02/28/19 06:00 Potassium 3.6 mmol/L (3.5-5.1) 02/28/19 06:00 Chloride 98 mmol/L (98-107) 02/28/19 06:00 Carbon Dioxide 34 mmol/L (22-30) H 02/28/19 06:00 Anion Gap 11.6 02/28/19 06:00 BUN 39 mg/dL (7-17) H 02/28/19 06:00 Creatinine 2.70 mg/dL (0.52-1.04) H 02/28/19 06:00 Estimated Creat Clear 24 02/28/19 06:00 Est GFR ( Amer) 22 (60-) L 02/28/19 06:00 Est GFR (Non-Af Amer) 18 (60-) L 02/28/19 06:00 Glucose 90 mg/dL (74-106) 02/28/19 06:00 Calcium 8.7 mg/dL (8.4-10.2) 02/28/19 06:00 Total Bilirubin 0.5 mg/dL (0.2-1.3) 02/28/19 06:00 AST 27 U/L (15-46) 02/28/19 06:00 ALT 10 U/L (13-69) L 02/28/19 06:00 Alkaline Phosphatase 44 U/L (38-126) 02/28/19 06:00 CK-MB (CK-2) 0.3 ng/mL (0.0-5.6) 02/27/19 16:38 Troponin I < 0.012 ng/mL (0.012-0.034) L 02/27/19 16:38 NT-Pro-B Natriuret Pep 1311.0 pg/mL (11.1-450.0) H 02/27/19 16:38 Total Protein 6.1 g/dL (6.3-8.2) L 02/28/19 06:00 Albumin 3.1 g/dL (3.5-5.0) L 02/28/19 06:00 TSH 5.480 mIU/l (0.465-4.685) H 02/27/19 16:38 Assessment/Plan - Assessment/Plan (1) Constipation by delayed colonic transit Status: Acute Assessment: Will go ahead and give the patient please some of the data see if we can get her constipation doing better. 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
--- NOTE | 2019-03-01 09:14 | Discharge Summary ---
Discharge Summary - Discharge [facility] Admission Date: 02/27/19 (Obs) [facility] Condition at Discharge: Stable Home Medications: Ambulatory Orders Medication Instructions Recorded Aspirin [Rosa] 1 tab PO DAILY 10/16/18 Cetirizine HCl [Zyrtec] 1 tab PO DAILY 10/16/18 Insulin Aspart [Novolog Flexpen] 1 unit SQ PRN PRN 10/16/18 Insulin Detemir (Nf) [Levemir 15 units SQ AM 10/16/18 Flex-Pen (Nf)] Insulin Detemir [Levemir Flextouch] 30 units SQ HS 10/16/18 Furosemide 20 mg PO DAILY #180 tablet 10/18/18 Levothyroxine Sodium [Synthroid] 88 mcg PO 0700 #30 tablet 03/01/19 Linaclotide [Linzess] 145 mcg PO DAILY #30 capsule 03/01/19 Consultations this Visit: None Procedures this Visit: None Allergies/Adverse Reactions: Allergies Allergy/AdvReac Type Severity Reaction Status Date / Time acetaminophen [From Tylenol] Allergy Verified 10/16/18 17:10 Discharge Summary: Patient did have a had CT scan done in the emergency room because of her mental status changes. This came back consistent with normal aging pathology with no acute changes noted. patient was felt to be having some constipation problems. Patient was initially given some hydrated magnesium with only minimum results. Patient was then given a plea cinema had several large bowel movements. Without patient stated that she was feeling better. Patient did have some bradycardia during her admission with a heart rate getting into the 40s at times. Patient was able to maintain her blood pressure without any difficulties. it was felt that the patient could be managed on an outpatient basis at the long term. Patient was subsequently discharged home in stable condition. - Final Diagnosis (1) Constipation by delayed colonic transit Problems: improved (2) Bradycardia Problems: Stable (3) Hypothyroidism Problems: Stable
[2019-03-01] MEDS: DOCUSATE SODIUM 100 MG CAPSULE PO SCH (10:05)
[2019-03-01] MEDS: ASPIRIN 81 MG CHEW TAB PO SCH (10:05)
[2019-03-01] MEDS: hydrALAZINE HCL 25 MG TABLET PO SCH (10:06)
[2019-03-01] MEDS: ENOXAPARIN SODIUM 30 MG/0.3 ML DISP.SYRIN SQ SCH (10:06)
[2019-03-01 13:40] VITALS: BP 150/65
== END 2019-03-01 15:05 ==
LOC: ED 16:10 → SOUTH 19:08
PROVIDERS: ADMIT Family Medicine; ATTEND Family Medicine
DX: R53.83 Other fatigue (principal); R00.1 Bradycardia, unspecified; K59.01 Slow transit constipation; E13.21 Other specified diabetes mellitus with diabetic nephropathy; E03.9 Hypothyroidism, unspecified
CPT/HCPCS: 36415; 70450; 74018; 80053; 82553; 83880; 84443; 84484; 85025; 93005; 96360; 99218; 99282; 99284; J1650; J7060; G0378; J7030

== ENCOUNTER 2019-04-10 10:15 | Outpatient (CLI) | payer MEDICARE, OTHER | END 2019-04-10 10:30 | LOC: LAB 10:15 | PROVIDERS: ATTEND Family Medicine | DX: E11.22 Type 2 diabetes mellitus with diabetic chronic kidney disease (principal); I12.9 Hypertensive chronic kidney disease with stage 1 through stage 4 chronic kidney disease, or unspecified chronic kidney disease; N18.9 Chronic kidney disease, unspecified | CPT/HCPCS: 36415; 83036; P9604 ==

== ENCOUNTER 2019-07-10 06:00 | Outpatient (CLI) | payer MEDICARE, OTHER ==
[2019-07-10 09:03] LABS: BASOPHILS % 0.2 % (0.0-1.5); NEUTROPHILS # 2.9 # k/uL (1.4-7.7)
[2019-07-10 09:04] LABS: A1C 5.5 % (<5.7); HDL 40 mg/dL (>40); eGFR (Non-African) 21
== END 2019-07-10 06:05 ==
LOC: LAB 06:00
PROVIDERS: ATTEND Family Medicine
DX: D64.9 Anemia, unspecified (principal); I10 Essential (primary) hypertension
CPT/HCPCS: 36415; 80053; 80061; 83036; 85025; P9604